=== PATIENT | female | born 1990 | race Asian ===

== ENCOUNTER → 2018-05-06 | Outpatient (CLI) | payer OTHER ==
[~2018-05-06] MED LIST: AMOX1TAB64 PO; ESTR1TAB PO; MOME17SP NS; OMEP20TA62 PO; OXYC-302 PO
== END | disposition home or self-care (01) ==
LOC: CFH 08:02
PROVIDERS: ATTEND Nurse Practitioner Family
DX: N13.30 Unspecified hydronephrosis (principal); N28.1 Cyst of kidney, acquired; R31.9 Hematuria, unspecified; E11.9 Type 2 diabetes mellitus without complications
CPT/HCPCS: 76770

== ENCOUNTER → 2018-07-07 | Outpatient (CLI) | payer OTHER ==
[~2018-07-07] MED LIST changes: +OMNIPAQUE 350 MG/ML, 150 ML BOTTLE ONE
== END | disposition home or self-care (01) ==
LOC: CFH 09:16
PROVIDERS: ATTEND Nurse Practitioner Family
DX: R31.21 Asymptomatic microscopic hematuria (principal)
CPT/HCPCS: 74178; Q9967

== ENCOUNTER 2019-12-23 10:58 | Outpatient (CLI) | payer OTHER ==
[~2019-12-23 10:58] MED LIST changes: -OMNIPAQUE 350 MG/ML, 150 ML BOTTLE ONE
== END 2019-12-23 23:59 | disposition home or self-care (01) ==
LOC: CFH 10:58
PROVIDERS: ATTEND Internal Medicine Nephrology
DX: Z13.21 Encounter for screening for nutritional disorder (principal); Z13.9 Encounter for screening, unspecified; N20.0 Calculus of kidney; N18.1 Chronic kidney disease, stage 1; R31.9 Hematuria, unspecified; R80.9 Proteinuria, unspecified
CPT/HCPCS: 76770

== ENCOUNTER 2020-01-13 06:01 | Day surgery (SDC) | payer OTHER ==
[~2020-01-13] VITALS: Ht 160 cm; Wt 138.0 kg
[2020-01-13] MEDS ORDERED: SODIUM CHLORIDE 0.9% 1,000 ML IV SCH (06:37)
[2020-01-13 07:11] LABS: HCG UR SG 1.007 (1.003-1.030)
[2020-01-13 07:12] VITALS: BP 119/82
[2020-01-13 07:44] LABS: INTERNATIONAL NORMALIZED RATIO 0.93 (0.93-1.1); PROTHROMBIN TIME 9.9 Seconds (9.6-11.5)
[2020-01-13] MEDS ORDERED: MIDAZOLAM 1 MG/ML, 5ML ONE ×2 (07:55)
[2020-01-13] MEDS ORDERED: FENTANYL PF 100 MCG/2ML ONE (07:55)
[2020-01-13] MEDS ORDERED: FLUMAZENIL 0.1 MG/1 ML, 5ML ONE (07:55)
[2020-01-13] MEDS ORDERED: NALOXONE 1 MG/ML, 2ML ONE (07:56)
[2020-01-13] MEDS ORDERED: LIDOCAINE 1%, 20ML ONE (08:21)
== END 2020-01-13 10:05 | disposition home or self-care (01) ==
LOC: OUT 06:01
PROVIDERS: ATTEND Internal Medicine Nephrology
DX: I12.9 Hypertensive chronic kidney disease with stage 1 through stage 4 chronic kidney disease, or unspecified chronic kidney disease (principal); N18.2 Chronic kidney disease, stage 2 (mild); N25.81 Secondary hyperparathyroidism of renal origin; D64.9 Anemia, unspecified; E55.9 Vitamin D deficiency, unspecified; Z79.899 Other long term (current) drug therapy; Z98.890 Other specified postprocedural states
CPT/HCPCS: 36415; 50200; 77012; 81025; 85610; 88300; 99156; 99157; J2250; J3010; J7030; 47000; J2310

== ENCOUNTER 2021-05-21 15:06 | Outpatient (CLI) | payer OTHER ==
[~2021-05-21 15:06] MED LIST changes: -OXYC-302 PO; +OXYC1TAB12 PO
[2021-05-21] MEDS ORDERED: BUPR150T73 PO (15:41)
[2021-05-21] MEDS ORDERED: CETI10CA PO (15:41)
[2021-05-21] MEDS ORDERED: CHOL10003 PO (15:41)
[2021-05-21] MEDS ORDERED: PREN1TAB10 PO (15:41)
[2021-05-21 16:03] LABS: BASOPHILS % (AUTO) 1 % (0-1); EOSINOPHILS % (AUTO) 3 % (1-7); LYMPHOCYTES % (AUTO) 30 % (22-44); MEAN CORPUSCULAR HEMOGLOBIN 27.4 pg (27.0-34.8); MEAN CORPUSCULAR HGB CONC 32.5 g/dL (32.4-35.8); MEAN PLATELET VOLUME 7.7 fL (7.4-10.4); MONOCYTES % (AUTO) 6 % (2-9); NEUTROPHILS % (AUTO) 61 % (42-75); PLATELET COUNT 394 x10^3/uL (130-400); RED BLOOD COUNT 5.05 x10^6/uL (3.82-5.3); RED CELL DISTRIBUTION WIDTH 14.5 % (9.6-15.2)
[2021-05-21 16:07] LABS: ALANINE AMINOTRANSFERASE 49 U/L (12-78); ALBUMIN 3.2 g/dL (3.4-5.0); ANION GAP 6 mmol/L (5-15); CALCIUM 8.2 mg/dL (8.5-10.1); CHLORIDE 109 mmol/L (98-107); CREATININE 0.72 mg/dL (0.55-1.02)
[2021-05-21 16:11] LABS: ALKALINE PHOSPHATASE 73 U/L (45-117); BILIRUBIN,TOTAL 0.3 mg/dL (0.2-1.0); TOTAL PROTEIN 7.6 g/dL (6.4-8.2)
[2021-05-21 16:21] LABS: MICROSCOPIC AUTO
== END 2021-05-21 23:59 | disposition home or self-care (01) ==
LOC: STAR 15:06
PROVIDERS: ATTEND Obstetrics & Gynecology
DX: Z01.812 Encounter for preprocedural laboratory examination (principal); Z20.822 Contact with and (suspected) exposure to COVID-19; N85.01 Benign endometrial hyperplasia
CPT/HCPCS: 36415; 80053; 81001; 84702; 85025; U0003; U0005

== ENCOUNTER 2021-05-24 10:36 | Day surgery (SDC) | payer OTHER ==
[~2021-05-24] VITALS: Ht 160 cm; Wt 140.3 kg
[~2021-05-24 10:36] MED LIST changes: +BUPR150T73 PO; +CETI10CA PO; +CHOL10003 PO; +PREN1TAB10 PO
[2021-05-24] MEDS ORDERED: OLOP5DRO EACHEYE (11:09)
[2021-05-24] MEDS ORDERED: CHLORHEXIDINE 15 ML UDC ONE (11:12)
[2021-05-24] MEDS ORDERED: CHLORHEXIDINE 15 ML UDC PO ONE (11:30)
[2021-05-24] MEDS ORDERED: LACTATED RINGERS 1,000 ML IV SCH (11:30)
[2021-05-24 11:34] VITALS: BP 111/75
[2021-05-24 12:02] LABS: HCG UR SG 1.021 (1.003-1.030)
[2021-05-24] MEDS ORDERED: FENTANYL PF 100 MCG/2ML ONE (12:17)
[2021-05-24] MEDS ORDERED: MIDAZOLAM 1 MG/ML, 2ML ONE (12:17)
[2021-05-24] MEDS ORDERED: SILVER NITRATE STICK TP ONE (12:23)
[2021-05-24] MEDS ORDERED: EPINEPHRINE 1 MG/ML, 1ML ONE (12:23)
[2021-05-24] MEDS ORDERED: BUPIVACAINE/PF 0.25% ONE (12:23)
[2021-05-24] MEDS ORDERED: KETOROLAC 30 MG/1 ML IVPush ONE (13:32)
[2021-05-24] MEDS ORDERED: ACETAMINOPHEN 650 MG/20.3 ML UDC ONE (13:42)
[2021-05-24] MEDS ORDERED: KETOROLAC 30 MG/1 ML ONE (13:42)
[2021-05-24] MEDS ORDERED: ONDANSETRON 2MG/ML, 2ML IVPush PRN (14:00)
[2021-05-24] MEDS ORDERED: FENTANYL PF 100 MCG/2ML IV PRN (14:00)
[2021-05-24] MEDS ORDERED: OXYcodone 5 MG/5 ML ORAL.SOL UDC PO PRN (14:00)
[2021-05-24] MEDS ORDERED: ACETAMINOPHEN 325 MG TABLET PO PRN (14:00)
[2021-05-24] MEDS ORDERED: HYDROmorphone 1 MG/ML, 1ML INJ IVPush PRN (14:00)
[2021-05-24] MEDS ORDERED: PROMETHAZINE 25 MG/ML, 1ML IVPush PRN (14:00)
[2021-05-24] MEDS ORDERED: MEPERIDINE/PF 25MG/0.5ML IVPush PRN (14:00)
== END 2021-05-24 15:15 | disposition home or self-care (01) ==
LOC: OUT 10:36
PROVIDERS: ATTEND Obstetrics & Gynecology
DX: N85.01 Benign endometrial hyperplasia (principal); N91.5 Oligomenorrhea, unspecified; E66.01 Morbid (severe) obesity due to excess calories; N18.2 Chronic kidney disease, stage 2 (mild); Z68.43 Body mass index [BMI] 50.0-59.9, adult; Z79.899 Other long term (current) drug therapy; Z98.890 Other specified postprocedural states
CPT/HCPCS: 36415; 58558; 81025; 86850; 86900; 88305; J0171; J1885; J2250; J3010; J7120